=== PATIENT | male | born 1960 | race Asian ===

== ENCOUNTER 2017-12-18 15:14 | Inpatient (IN) | payer OTHER ==
[~2017-12-18 15:14] MED LIST: ASPIRIN 81 MG TAB; HEPARIN 5,000 UNIT/0.5 ML VIAL
[2017-12-18] MEDS ORDERED: morphine 4 MG/ML VIAL (15:19)
[2017-12-18] MEDS ORDERED: MAGNESIUM SULFATE 1 GM/D5W 100 ML (15:19)
[2017-12-18 15:41] LABS: ADD MAN DIFF? NO
[2017-12-18] MEDS: morphine 4 MG/ML VIAL IV (15:41)
[2017-12-18 15:42] LABS: BASOPHIL # 0.1 10^3/ul (0.0-0.1); BASOPHILS % 0.5 % (0.0-2.0); EOSINOPHILS # 0.1 10^3/ul (0.0-0.5); EOSINOPHILS % 0.5 % (0.0-7.0); HEMATOCRIT 50.9 % (42.0-52.0); HEMOGLOBIN 17.2 g/dl (14.0-18.0); LYMPHOCYTES # 3.3 10^3/ul (0.8-2.9); LYMPHOCYTES % 31.7 % (15.0-51.0); MEAN CORPUSCULAR HEMOGLOBIN 30.8 pg (29.0-33.0); MEAN CORPUSCULAR HGB CONC 33.8 g/dl (32.0-37.0); MEAN CORPUSCULAR VOLUME 91.2 fl (82.0-101.0); MEAN PLATELET VOLUME 11.3 fl (7.4-10.4); MONOCYTE # 0.8 10^3/ul (0.3-0.9); MONOCYTES % 7.1 % (0.0-11.0); NEUTROPHIL # 6.3 10^3/ul (1.6-7.5); NEUTROPHILS % 59.8 % (39.0-77.0); PLATELET COUNT 201 10^3/UL (140-415); RED BLOOD COUNT 5.58 10^6/ul (4.70-6.10); RED CELL DISTRIBUTION WIDTH 11.9 % (11.5-14.5)
[2017-12-18 15:42] LABS: WHITE BLOOD COUNT 10.5 10^3/ul (4.8-10.8)
[2017-12-18] MEDS: MAGNESIUM SULFATE 1 GM/D5W 100 ML IVPB (15:42)
[2017-12-18] MEDS: ASPIRIN 81 MG TAB PO (15:42)
[2017-12-18 15:45] LABS: INR 0.91; PROTIME 12.3 Sec (11.9-14.9)
[2017-12-18 15:46] LABS: PARTIAL THROMBOPLASTIN TIME 22.6 Sec (25.0-35.0)
[2017-12-18] MEDS ORDERED: FENTAnyl 50 MCG/ML VIAL (15:49)
[2017-12-18] MEDS ORDERED: IODIXANOL LOCM 100 ML BTL ×2 (15:49→16:30)
[2017-12-18] MEDS ORDERED: MIDAZOLAM 1 MG/ML 2 ML INJ (15:49)
[2017-12-18] MEDS: HEPARIN 1000 UNITS/ML 10 ML INJ IV (15:50)
[2017-12-18 15:52] LABS: ANION GAP 15 (8-16); BLOOD UREA NITROGEN 14 mg/dl (7-20); CALCIUM 8.7 mg/dl (8.4-10.2); CARBON DIOXIDE 22 mmol/L (21-31); CHLORIDE 111 mmol/L (97-110); CREATINE KINASE 90 IU/L (23-200); CREATININE 1.11 mg/dl (0.61-1.24); GLUCOSE 137 mg/dl (70-220); POTASSIUM 3.8 mmol/L (3.5-5.1); SODIUM 144 mmol/L (135-144)
[2017-12-18 16:04] LABS: CK INDEX 0.7; CK-MB 0.64 ng/ml (0.0-2.4); TROPONIN-I < 0.012 ng/ml (0.000-0.120)
[2017-12-18] MEDS ORDERED: METOPROLOL 5 MG INJ (16:07)
[2017-12-18] MEDS ORDERED: TICAGRELOR 90 MG TABLET (16:22)
[2017-12-18] MEDS ORDERED: IOHEXOL 350MG/ML 50 ML BTL (16:30)
[2017-12-18] MEDS ORDERED: NITROGLYCERIN (IC) 100 MCG/ML INJ (16:38)
[2017-12-18] MEDS ORDERED: MAGNESIUM SULFATE 2 GM/50 ML 50 ML (16:42)
[2017-12-18] MEDS: SOD CHLORIDE 0.9% 1,000 ML IV (17:43)
[2017-12-18] MEDS: ATORVASTATIN 80 MG TAB PO (20:38)
[2017-12-18] MEDS: TICAGRELOR 90 MG TABLET PO (20:40)
[2017-12-18] MEDS ORDERED: ATROPINE 1 MG/10 ML SYRINGE (21:15)
[2017-12-18 21:35] LABS: ANION GAP 10 (8-16); BLOOD UREA NITROGEN 11 mg/dl (7-20); CALCIUM 7.9 mg/dl (8.4-10.2); CARBON DIOXIDE 24 mmol/L (21-31); CHLORIDE 110 mmol/L (97-110); CREATININE 0.85 mg/dl (0.61-1.24); GLUCOSE 130 mg/dl (70-220); MAGNESIUM 2.7 mg/dl (1.7-2.5); POTASSIUM 4.3 mmol/L (3.5-5.1); SODIUM 140 mmol/L (135-144)
[2017-12-18] MEDS: LOSARTAN 25 MG TAB PO (21:48)
[2017-12-18] MEDS: PANTOPRAZOLE (EC) 40 MG TAB PO (22:53)
[2017-12-19] MEDS: HYDROCODONE/APAP (5/325) TAB PO ×3 (02:01→11:10)
[2017-12-19 05:16] LABS: ADD MAN DIFF? NO
[2017-12-19 05:23] LABS: BASOPHILS % 0.3 % (0.0-2.0); EOSINOPHILS % 0.1 % (0.0-7.0); HEMATOCRIT 49.2 % (42.0-52.0); HEMOGLOBIN 16.5 g/dl (14.0-18.0); LYMPHOCYTES % 8.5 % (15.0-51.0); MEAN CORPUSCULAR HGB CONC 33.5 g/dl (32.0-37.0); MEAN CORPUSCULAR VOLUME 92.5 fl (82.0-101.0); MEAN PLATELET VOLUME 11.3 fl (7.4-10.4); MONOCYTE # 1.1 10^3/ul (0.3-0.9); MONOCYTES % 9.2 % (0.0-11.0); NEUTROPHIL # 9.3 10^3/ul (1.6-7.5); NEUTROPHILS % 81.5 % (39.0-77.0); PLATELET COUNT 162 10^3/UL (140-415); RED BLOOD COUNT 5.32 10^6/ul (4.70-6.10); RED CELL DISTRIBUTION WIDTH 12.3 % (11.5-14.5)
[2017-12-19 05:23] LABS: WHITE BLOOD COUNT 11.5 10^3/ul (4.8-10.8)
[2017-12-19 05:35] LABS: HEMOGLOBIN A1C 5.6 % (0-5.9)
[2017-12-19] MEDS: PANTOPRAZOLE (EC) 40 MG TAB PO (05:54)
[2017-12-19 05:55] LABS: ANION GAP 11 (8-16); BLOOD UREA NITROGEN 13 mg/dl (7-20); CALCIUM 8.3 mg/dl (8.4-10.2); CARBON DIOXIDE 25 mmol/L (21-31); CHLORIDE 108 mmol/L (97-110); CHOL/HDL RATIO 6.1 RATIO; CHOLESTEROL 232 mg/dl (100-200); CREATININE 0.88 mg/dl (0.61-1.24); GLUCOSE 150 mg/dl (70-220); HDL CHOLESTEROL 38 mg/dl (28-71); LDL CHOLESTEROL,CALCULATED 153 mg/dl; POTASSIUM 4.3 mmol/L (3.5-5.1); SODIUM 140 mmol/L (135-144); TRIGLYCERIDES 206 mg/dl (0-149)
[2017-12-19] MEDS: SOD CHLORIDE 0.9% 1,000 ML IV (05:55)
[2017-12-19 05:58] LABS: MAGNESIUM 2.4 mg/dl (1.7-2.5)
[2017-12-19] MEDS: ASPIRIN (EC) 81 MG TAB PO (09:47)
[2017-12-19] MEDS: LOSARTAN 25 MG TAB PO (09:49)
[2017-12-19] MEDS: TICAGRELOR 90 MG TABLET PO (09:50)
== END 2017-12-19 17:00 | disposition short-term general hospital (02) | DRG 247 ==
LOC: E/R 15:14 → CCL 15:52 → SDS 15:52 → ICU 17:19
PROC: 027036Z Dilation of Coronary Artery, One Artery with Three Drug-eluting Intraluminal Devices, Percutaneous Approach (ICD-10-PCS; principal; 2017-12-18 15:00)
PROC: 4A023N7 Measurement of Cardiac Sampling and Pressure, Left Heart, Percutaneous Approach (ICD-10-PCS; 2017-12-18 15:00)
PROC: B211YZZ Fluoroscopy of Multiple Coronary Arteries using Other Contrast (ICD-10-PCS; 2017-12-18 15:00)
PROC: B215YZZ Fluoroscopy of Left Heart using Other Contrast (ICD-10-PCS; 2017-12-18 15:00)
DX: I21.02 ST elevation (STEMI) myocardial infarction involving left anterior descending coronary artery (principal); I47.1 Supraventricular tachycardia; I10 Essential (primary) hypertension; E78.5 Hyperlipidemia, unspecified; I25.119 Atherosclerotic heart disease of native coronary artery with unspecified angina pectoris; I25.5 Ischemic cardiomyopathy
CPT/HCPCS: 71045; 80048; 80061; 82550; 82553; 83036; 83735; 84484; 85025; 85610; 85730; 87081; 93005; 93306; 93458; 96365; 96375; 99291-25